=== PATIENT | female | born 1980 | race Two or more races ===

== ENCOUNTER → 2024-06-06 12:54 | Outpatient (BNVA) | payer SELFPAY | PROVIDERS: Visit Provider Nurse Practitioner | DX: N89.8 Other specified noninflammatory disorders of vagina (principal) | CPT/HCPCS: 81000; 87086 ==

== ENCOUNTER → 2024-12-15 13:27 | Outpatient (BNVA) | payer OTHER, SELFPAY | PROVIDERS: PCP Family Medicine; Visit Provider Family Medicine | DX: Z13.6 Encounter for screening for cardiovascular disorders (principal); F32.1 Major depressive disorder, single episode, moderate; E66.811 Obesity, class 1; G47.00 Insomnia, unspecified; R00.2 Palpitations; J32.9 Chronic sinusitis, unspecified; R60.9 Edema, unspecified | CPT/HCPCS: 80053; 80061; 83036; 84439; 84443; 85025 ==